=== PATIENT | female | born 1955 | race Caucasian/White ===

== ENCOUNTER 2020-05-11 14:02 | Outpatient (REF) | payer SELFPAY | END 2020-05-11 14:03 | disposition home or self-care (01) | LOC: HO.LAB 14:02 | PROVIDERS: Visit Provider Internal Medicine | DX: Z20.828 Contact with and (suspected) exposure to other viral communicable diseases (principal) | CPT/HCPCS: C9803; U0003 ==

== ENCOUNTER 2021-01-15 10:54 | Outpatient (REF) | payer MEDICARE, MEDICAID, SELFPAY | END 2021-01-15 10:55 | disposition home or self-care (01) | LOC: HO.LAB 10:54 | PROVIDERS: PCP Internal Medicine; Visit Provider Internal Medicine | DX: Z20.822 Contact with and (suspected) exposure to COVID-19 (principal) | CPT/HCPCS: C9803; U0003; U0005 ==

== ENCOUNTER 2021-01-24 09:35 | Emergency (ER) | payer MEDICARE, SELFPAY ==
[2021-01-24 11:25] VITALS: BP 146/96; PULSE 98; RESP 20; TEMP 36.8; O2SAT 98; BMI 21.2
[2021-01-24 12:07] LABS: MANUAL DIFF FLAG NO
[2021-01-24 12:08] LABS: Basophils Absolute Auto 0.1 X10*3/uL (0.0-0.2); Basophils Percent Auto 0.8 % (0-2); Hematocrit 44.1 % (37-47); Hemoglobin 15.1 g/dl (12.0-16.0); Imm Gran Abs Auto 0.05 X10*3/uL (0.00-0.03); Imm Gran Pct Auto 0.5 % (0.0-0.4); Lymphocytes Percent Auto 10.5 % (20-40); Mean Corpuscular HGB Conc 34.2 g/dl (31.0-35.0); Mean Corpuscular Volume 99.3 fL (80-98); Mean Platelet Volume 9.9 fL (9.4-12.3); Monocytes Percent Auto 10.5 % (2-11); Neutrophils Absolute Auto 7.7 X10*3/uL (2.0-8.3); Neutrophils Percent Auto 77.7 % (45-73); Platelet Count 353 X10*3/uL (160-400); Red Blood Count 4.44 X10*6/uL (4.20-5.50); Red Cell Distribution Width 11.7 % (11.0-16.0); White Blood Count 9.9 X10*3/uL (4.8-10.8)
[2021-01-24 12:18] LABS: INTERNATIONAL NORM RATIO 1.1 (0.9-1.1); Prothrombin Time 12.1 SEC (9.9-13.0)
[2021-01-24 12:28] LABS: Anion Gap 18 (12-20); Blood Urea Nitrogen 8 mg/dL (9-16); Calcium 9.6 mg/dL (8.4-10.2); Carbon Dioxide 24 mmol/L (22-29); Chloride 99 mmol/L (96-108); Creatinine Clr Calc Pharmacy 85.2; Estimated Glomerular Filt Rate > 60; Glucose Random 108 mg/dL (60-115); Lipase 55 U/L (8-78); Sodium 137 mmol/L (135-145)
[2021-01-24 12:29] LABS: COVID-19 Test Negative (Negative); IDNOW Serial# 08D9AD1C
[2021-01-24] MEDS: Ondansetron ODT 4 MG TAB.RAPDIS TRANSLINGU (12:30)
[2021-01-24 13:00] VITALS: BP 150/98; PULSE 88; RESP 16; O2SAT 100
--- NOTE | 2021-01-24 13:01 | ED_ITS ---
HPI - Nausea/Vomiting/Diarrhea General Chief complaint: Nausea/Vomiting/Diarrhea Stated complaint: vomiting for weeks Time Seen by Provider: 01/24/21 13:00 Source: patient Mode of arrival: ambulatory Limitations: no limitations History of Present Illness HPI Narrative: 65-year-old female who is not on any daily medications presents for intermittent nausea and vomiting for the last 6 weeks. There is no pattern to this, patient will vomit every 3 days, sometimes go for week and then vomit once. She has not changed her diet, reports a healthy diet. No abdominal pain, no fevers. No diarrhea. No weight loss, no night sweats, has not seen a respiratory services manager. Patient tried to get in with her primary care provider, but the wait was too long so she came here. Patient feels that she is hydrating well. She has not tried any prescription anti nausea medication. No recent antibiotic use, no recent different water sources or drinking from streams, no recent camping. The vomiting is not associated with eating, she does not have early satiety. Her last colonoscopy was at age 50, 15 years ago. MD elicited complaint: nausea and vomiting Onset (ago): week(s) (6) Description of vomiting: food contents Associated nausea: Yes Associated abdominal pain: No Exacerbating factors: none Relieving factors: none Associated symptoms: denies other symptoms Related Data Previous Rx's Medication Instructions Recorded ondansetron HCl 4 mg tablet 4 mg PO Q8H PRN #12 tab 01/24/21 (Zofran) Allergies Allergy/AdvReac Type Severity Reaction Status Date / Time penicillin G [PENICILLIN G] Allergy Mild RASH Verified 01/24/21 11:30 Review of Systems Review of Systems: Constitutional : No Weight loss, No Fever, No Chills, No Night Sweats,No Fatigue, No Malaise ENT/Mouth : No Hearing loss, No Ear Pain, No Nasal Congestion, NoSinus Pain, No Hoarseness, No sore throat, No Rhinorrhea, NoSwallowing Difficulty Eyes: No Eye Pain, No Swelling, No Redness, No Foreign Body, NoDischarge, No Vision Changes Cardiovascular : No Chest Pain, No SOB, No Dyspnea on Exertion, NoOrthopnea, No Edema, No Palpitations Respiratory : No Cough, No Sputum, No Wheezing, No Smoke Exposure, No Dyspnea Gastrointestinal : nausea and vomiting, No Diarrhea, NoConstipation, No abdominal Pain, No Hematochezia, No Melena Genitourinary : no irregular bleeding, No Dysuria, No UrinaryFrequency, No Hematuria, No Urinary Incontinence, No Urgency, No FlankPain, No Urinary Flow Changes, No Hesitancy Musculoskeletal : No joint pain, No Myalgias, No Joint Swelling Skin : No Skin Lesions, No rash Neuro : No Weakness, No Numbness, No Paresthesias, No Loss ofConsciousness, No Dizziness, No Headache Psych :, No Depression, No SI/HI/AH/VH, No Social Issues, Endocrine : No Polyuria, No Polydipsia, No Temperature Intolerance Gastrointestinal: Gastrointestinal: Reports nausea PMFSH Past Medical History Medical History (Updated 01/24/21 @ 13:35 by MARLYN Samaniego) Arthritis Social History Social History Alcohol intake: current Alcohol intake frequency: 0-2 drinks per day Patient Tobacco Use Status: Never used Tobacco Use of substances other than those prescribed or required for medical reasons: No Advance Directives: Yes Advance Directives Information Provided: Yes Advance Directives on File: No Physical Exam Vital Signs: Vital Signs: Last Vital Signs Temp 98.3 F 01/24/21 11:25 Pulse 88 01/24/21 13:00 Resp 16 01/24/21 13:00 BP 150/98 H 01/24/21 13:00 Pulse Ox 100 01/24/21 13:00 Body Mass Index 21.2 Appearance: Alert. Oriented X3. No acute distress. Head: Normal external exam. Normocephalic. Atraumatic. ?No Denny signs noted. No raccoon eyes noted Eyes: PERRLA. EOMI. Conjunctiva and sclera normal. Eyelids normal. ENT: EAC normal. TM's Normal. Pharynx normal. Uvula midline. Moist mucous membranes. ??No trismus noted. ?No drooling noted. ?No muffled voice noted. Neck: Normal inspection. Neck supple. FROM. No adenopathy. Thyroid Normal. No meningeal signs. No neck mass noted. CVS: Normal heart rate and rhythm. Heart sound normal. Pulses normal throughout. ?No murmurs/rales/gallops. Respiratory: No respiratory distress. Painless inspiration. Breath sounds normal. No wheezes/rales/rhonchi noted. Chest nontender. ??No accessory muscle usage noted or decreased air movement noted. Abdomen: Soft and nontender. Bowel sounds normal in all 4 quadrants. No dist ention noted. ?No organomegaly noted. ?No visible injury noted. Back: ?No CVA tenderness. ?Full range of motion noted. ?No rashes/lesion/induration/fluctuance or signs of infection noted. Skin: Skin warm and dry. ?Normal skin color. ?Normal skin turgor. No rashes/lesions/lacerations noted. Extremities: No lower extremity edema. ??Extremities exhibit normal range of motion. ?Extremities nontender. Neuro: Oriented X 3. ?No motor deficit. ?No sensory deficit. ?Reflexes normal. ?Normal steady gait. ?No focal neuro deficits noted. Vascular: + radial pulses/+ 2 distal pedal pulses/+2 dorsalis pedis b/l. ?Normal cap refill. ?No cyanosis noted to upper extremity nails and lower extremity toes nails. Course Course Course Narrative: 65-year-old female who is healthy at baseline presents for 6 weeks of nausea and vomiting that is intermittent who comes to the emergency room because she says ?it would take too long to get an appointment with my primary care provider. On exam, patient has a benign abdomen, no tenderness or guarding, abdomen is soft. Patient has normal chemistries, no leukocytosis, coags normal, COVID negative. EKG shows normal sinus with QTC at 470, which is normal. Will start patient on Zofran, have her follow-up with her primary care provider. MDM - Nausea/Vomiting/Diarrhea Lab Data Result diagrams: 01/24/21 12:02 01/24/21 12:02 Labs: Lab Results 01/24/21 01/24/21 01/24/21 Range/Units 12:02 12:02 12:02 WBC 9.9 (4.8-10.8) X10*3/uL RBC 4.44 (4.20-5.50) X10*6/uL Hgb 15.1 (12.0-16.0) g/dl Hct 44.1 (37-47) % MCV 99.3 H (80-98) fL MCH 34.0 H (27.0-33.0) pg MCHC 34.2 (31.0-35.0) g/dl RDW 11.7 (11.0-16.0) % Plt Count 353 (160-400) X10*3/uL MPV 9.9 (9.4-12.3) fL Immature Gran % (Auto) 0.5 H (0.0-0.4) % Neut % (Auto) 77.7 H (45-73) % Lymph % (Auto) 10.5 L (20-40) % [place]ville % (Auto) 10.5 (2-11) % Eos % (Auto) 0.0 (0-4) % Baso % (Auto) 0.8 (0-2) % Lymph # (Auto) 1.0 L (1.2-4.9) X10*3/uL [place] # (Auto) 1.0 (0.1-1.2) X10*3/uL Eos # (Auto) 0.0 (0.0-0.4) X10*3/uL Baso # (Auto) 0.1 (0.0-0.2) X10*3/uL Abs Immat Gran (auto) 0.05 H (0.00-0.03) X10*3/uL Absolute Neuts (auto) 7.7 (2.0-8.3) X10*3/uL Absolute Nucleated RBC 0.000 (0.0-0.012) X10*3/uL Nucleated RBC % (auto) 0.0 (0.0-0.2) /100WBC PT 12.1 (9.9-13.0) SEC INR 1.1 (0.9-1.1) Sodium 137 (135-145) mmol/L Potassium 4.0 (3.3-5.1) mmol/L Chloride 99 (96-108) mmol/L Carbon Dioxide 24 (22-29) mmol/L Anion Gap 18 (12-20) BUN 8 L (9-16) mg/dL Creatinine 0.66 (0.5-1.4) mg/dL Estim Creat Clear Calc 85.2 Estimated GFR > 60 Random Glucose 108 (60-115) mg/dL Calcium 9.6 (8.4-10.2) mg/dL Lipase 55 (8-78) U/L COVID-19 (MAUREEN) (Negative) COVID-19 Clin Com 01/24/21 Range/Units 12:02 WBC (4.8-10.8) X10*3/uL RBC (4.20-5.50) X10*6/uL Hgb (12.0-16.0) g/dl Hct (37-47) % MCV (80-98) fL MCH (27.0-33.0) pg MCHC (31.0-35.0) g/dl RDW (11.0-16.0) % Plt Count (160-400) X10*3/uL MPV (9.4-12.3) fL Immature Gran % (Auto) (0.0-0.4) % Neut % (Auto) (45-73) % Lymph % (Auto) (20-40) % [place]ville % (Auto) (2-11) % Eos % (Auto) (0-4) % Baso % (Auto) (0-2) % Lymph # (Auto) (1.2-4.9) X10*3/uL [place] # (Auto) (0.1-1.2) X10*3/uL Eos # (Auto) (0.0-0.4) X10*3/uL Baso # (Auto) (0.0-0.2) X10*3/uL Abs Immat Gran (auto) (0.00-0.03) X10*3/uL Absolute Neuts (auto) (2.0-8.3) X10*3/uL Absolute Nucleated RBC (0.0-0.012) X10*3/uL Nucleated RBC % (auto) (0.0-0.2) /100WBC PT (9.9-13.0) SEC INR (0.9-1.1) Sodium (135-145) mmol/L Potassium (3.3-5.1) mmol/L Chloride (96-108) mmol/L Carbon Dioxide (22-29) mmol/L Anion Gap (12-20) BUN (9-16) mg/dL Creatinine (0.5-1.4) mg/dL Estim Creat Clear Calc Estimated GFR Random Glucose (60-115) mg/dL Calcium (8.4-10.2) mg/dL Lipase (8-78) U/L COVID-19 (MAUREEN) Negative (Negative) COVID-19 Clin Com See Note ECG Data Interpretation: Normal sinus at a rate of 80, normal axis. MO interval 146, QRS 86, QTC is not prolonged at 470, no ST segment elevations or depressions, no T- wave changes. Discharge Plan Discharge Clinical Impression: Nausea & vomiting Qualifiers: Vomiting type: unspecified Vomiting Intractability: non-intractable Qualified Code(s): R11.2 - Nausea with vomiting, unspecified Patient Disposition: Home, Self-Care Instructions: Acute Nausea and Vomiting (ED) Additional Instructions: Please call your primary care provider today to arrange an appointment as a follow-up from today's emergency room visit. Please fill the prescription for Zofran and take as prescribed. If you have such nausea and vomiting that you cannot eat, if you have fevers, abdominal pain, or other new or concerning symptoms please return to emergency room. Prescriptions: New ondansetron HCl [Zofran] 4 mg tablet 4 mg PO Q8H PRN (Reason: nausea and vomiting) Qty: 12 RF: 0
--- NOTE | 2021-01-24 13:18 | ECG_ITS ---
Test Reason : NAUSEA Blood Pressure : / mmHG Vent. Rate : 080 BPM Atrial Rate : 080 BPM P-R Int : 146 ms QRS Dur : 086 ms QT Int : 408 ms P-R-T Axes : 047 037 042 degrees QTc Int : 470 ms Normal sinus rhythm Nonspecific ST abnormality Abnormal ECG No previous ECGs available Referred By: Cristel Dejesus Electronically Signed By:MARTIN NOONAN
[2021-01-24 13:55] VITALS: BP 155/103; PULSE 89; RESP 18; TEMP 36.7; O2SAT 100
--- NOTE | 2021-01-24 14:02 | PC.NURSE ---
PT EVALUATED BY PROVIDER UPON ARRIVAL TO BED. REVIEWED LABS COMPLETED IN THE WAITING ROOM. PLAN IS FOR DC HOME. PT AGREEABLE TO THIS PLAN. PT AWAKE, ALERT AND ORIENTED X 3. SKIN WARM AND DRY. RESP UNLABORED. DENIES N/V. NO ACUTE DISTRESS NOTED. AMBULATORY, GAIT STEADY.
== END 2021-01-24 14:00 | disposition home or self-care (01) ==
PROVIDERS: Emergency Provider Internal Medicine; PCP Internal Medicine
DX: R11.2 Nausea with vomiting, unspecified (principal); Z20.822 Contact with and (suspected) exposure to COVID-19
CPT/HCPCS: 36415; 80048; 83690; 85025; 85610; 87635; 93005; 99283; 99284

== ENCOUNTER 2021-10-01 09:47 | Outpatient (REF) | payer MEDICARE, SELFPAY ==
[2021-10-01 10:07] LABS: COVID-19 Test Positive (Negative); IDNOW Serial# 08D9AD1C
== END 2021-10-01 09:48 | disposition home or self-care (01) ==
LOC: HO.LAB 09:47
PROVIDERS: PCP Internal Medicine; Visit Provider Internal Medicine
DX: Z20.822 Contact with and (suspected) exposure to COVID-19 (principal)
CPT/HCPCS: 87635; C9803

== ENCOUNTER 2021-10-16 10:02 | Outpatient (REF) | payer MEDICARE, SELFPAY ==
[2021-10-16 11:12] LABS: COVID-19 Test Negative (Negative); IDNOW Serial# 08D9AD1C
== END 2021-10-16 10:03 | disposition home or self-care (01) ==
LOC: HO.LAB 10:02
PROVIDERS: Visit Provider Internal Medicine
DX: Z20.822 Contact with and (suspected) exposure to COVID-19 (principal)
CPT/HCPCS: 87635; C9803

== ENCOUNTER 2023-12-07 07:26 | Emergency (ER) | payer OTHER, SELFPAY ==
[2023-12-07 07:31] VITALS: BP 158/96; PULSE 119; RESP 18; TEMP 37; O2SAT 98; BMI 20.7
--- NOTE | 2023-12-07 07:38 | ED.NAVMDI ---
HPI - Nausea/Vomiting/Diarrhea General Chief complaint: Nausea/Vomiting/Diarrhea Stated complaint: NAUSEA/VOMITING X24 HRS PER EMS Time Seen by Provider: 12/07/23 07:33 Source: patient and EMS Mode of arrival: EMS Limitations: no limitations History of Present Illness ED Provider: Dr. Horan HPI Narrative: Patient has not had an alcoholic drink in 3days because she was going for a hip replacement today. Patient unable to keep anything down. MD elicited complaint: nausea and vomiting Onset (ago): hour(s) Description of vomiting: watery Associated nausea: Yes Related Data Previous Rx's ?Medication ?Instructions ?Recorded ondansetron HCl 4 mg tablet 4 mg PO Q8H PRN nausea and 01/24/21 (Zofran) vomiting #12 tabs ondansetron 4 mg disintegrating 4 mg PO Q8H 4 days #12 tabs 12/07/23 tablet Allergies Allergy/AdvReac Type Severity Reaction Status Date / Time penicillin G [PENICILLIN G] Allergy Mild RASH Verified 12/07/23 07:40 Review of Systems Review of Systems: Yes all other systems are reviewed and are negative Gastrointestinal: Gastrointestinal: Reports nausea Neurologic: Denies Sensory deficit (Neuro) [facility] Past Medical History Medical History Arthritis Social History Social History Unable to assess alcohol history related to: Unknown Alcohol intake: current Alcohol intake frequency: 0-2 drinks per day Alcohol type: wine and hard liquor Patient Tobacco Use Status: Never used Tobacco Advance Directives: No Advance Directives Information Provided: Yes Do you have a plan to hurt others: No Plan Physical Exam Vital Signs: Vital Signs: Last Vital Signs Temp 98.1 F 12/07/23 12:44 Pulse 95 12/07/23 12:44 Resp 18 12/07/23 12:44 BP 125/67 12/07/23 12:44 Pulse Ox 98 12/07/23 12:44 O2 Del Method Room Air 12/07/23 12:44 BMI result Body Mass Index 20.7 Const: Other: female shakey, diaphoretic looking miserable Nutritional Appearance: average body habitus Orientation/consciousness: oriented to person and patient oriented x3 Limitations: no limitations HEENT: Head: Yes normal to inspection Ears: external ears normal General nose exam: Normal external nose present Mouth: Normal oral and palatal mucosa present and oropharynx normal Throat: Yes posterior oropharynx normal Eyes: General: appearance normal, both eyes and all related structures Neck: Other: supple Neck: Yes normal visual inspection Chest: Chest palpation & inspection: normal inspection of the chest Resp: Auscultation: clear to auscultation bilaterally Cardio: Jugular venous distension: no JVD Rate: regular rate Rhythm: regular rhythm Heart sounds: S1 normal heart sound present and S2 normal heart sound present GI: Inspection: Yes normal to inspection Palpation (GI): Soft to palpation, nontender and No hepatosplenomegaly present Auscultation: normal bowel sounds : General: Yes no CVA tenderness Back/Spine/Pelvis: Back: no CVA tenderness Skin: General skin exam: no rashes or lesions noted Neuro: Other: shakey tremulous General: oriented to person and patient oriented x3 Cranial nerves: Yes CN's II-XII intact bilaterally Motor exam (neuro): 5/5 motor strength present throughout Sensory Exam: No Sensory deficit (Neuro) Extrem: General: Yes normal to inspection Psych: Appearance: grossly normal Course Reevaluation(s) Reevaluation #1: clinically the patient looks like she is in withdrawal, she improved after IV phenobarbital and zofran, will dc home Time: 09:42 Medications Administered Discontinued Medications Generic Name Dose Route Start Last Admin Trade Name Freq PRN Reason Stop Dose Admin Sodium Chloride 1,000 mls @ 999 mls/hr 12/07/23 07:45 12/07/23 11:39 Ns IVCONT 12/07/23 09:45 999 mls/hr .Q1H1M TERRY Administration Magnesium Sulfate 2 gm in 50 mls @ 25 mls/hr 12/07/23 08:18 12/07/23 09:16 Magnesium Sulfate/H2o IV 12/07/23 10:17 Infused ONCE ONE Infusion Potassium Chloride 10 meq in 100 mls @ 100 mls/hr 12/07/23 10:30 12/07/23 11:40 Potassium Chloride/H20 IV 12/07/23 12:29 100 mls/hr Q1H TERRY Administration Ondansetron HCl 4 mg 12/07/23 07:42 12/07/23 08:02 Ondansetron Hcl 4 Mg/2 Ml Vial IVPUSH 12/07/23 07:43 4 mg ONCE ONE Administration Phenobarbital Sodium 65 mg 12/07/23 07:42 12/07/23 08:02 Phenobarbital Sodium 65 Mg/Ml Vial IVPUSH 12/07/23 07:43 65 mg ONCE ONE Administration Medical Decision Making Differential Diagnosis Differential Diagnoses: The differential diagnosis associated with the presentation includes (alcohol withdrawal, viral gastritis, gastritis, alcoholism, hypomagnesemia) Admission/Observation Consideration of admission/observation: Escalation of care including admission/observation considered (upon arrival patient considered for admission) Consult Healthcare Provider Management of the patient was discussed with: Chemistry Quality Control Technician (susan DUVALL) Lab Data 12/07/23 07:50 12/07/23 07:50 Labs: Lab Results 12/07/23 Range/Units 07:50 WBC 7.1 (4.8-10.8) X10*3/uL RBC 3.76 L (4.20-5.50) X10*6/uL Hgb 13.0 (12.0-16.0) g/dl Hct 37.0 (37.0-47.0) % MCV 98.4 H (80.0-98.0) fL MCH 34.6 H (27.0-33.0) pg MCHC 35.1 H (31.0-35.0) g/dl RDW 11.9 (11.0-16.0) % Plt Count 100 L (160-400) X10*3/uL MPV 11.0 (9.4-12.3) fL Immature Gran % (Auto) 0.3 (0.0-0.4) % Neut % (Auto) 77.5 H (45-73) % Lymph % (Auto) 10.8 L (20-40) % Rains % (Auto) 11.1 H (2-11) % Eos % (Auto) 0.0 (0-4) % Baso % (Auto) 0.3 (0-2) % Lymph # (Auto) 0.8 L (1.2-4.9) X10*3/uL Rains # (Auto) 0.8 (0.1-1.2) X10*3/uL Eos # (Auto) 0.0 (0.0-0.4) X10*3/uL Baso # (Auto) 0.0 (0.0-0.2) X10*3/uL Abs Immat Gran (auto) 0.02 (0.00-0.03) X10*3/uL Absolute Neuts (auto) 5.5 (2.0-8.3) x10*3/uL Absolute Nucleated RBC 0.000 (0.0-0.012) X10*3/uL Nucleated RBC % (auto) 0.0 (0.0-0.2) /100WBC Sodium 140 (135-145) mmol/L Potassium 3.1 L (3.3-5.1) mmol/L Chloride 102 (96-108) mmol/L Carbon Dioxide 22 (22-29) mmol/L Anion Gap 19 (12-20) BUN 12 (9-16) mg/dL Creatinine 0.62 (0.5-1.4) mg/dL Estim Creat Clear Calc 77.2 Estimated GFR > 60 Random Glucose 129 H (60-115) mg/dL Calcium 9.4 (8.4-10.2) mg/dL Magnesium 1.3 L* (1.6-2.6) mg/dL Total Bilirubin 3.6 H (0.0-1.0) mg/dL AST 95 H (5-31) U/L ALT 35 H (0-31) U/L Alkaline Phosphatase 123 H (39-117) U/L Total Protein 7.6 (6.5-8.0) g/dL Albumin 3.8 (3.5-5.0) g/dL Ethyl Alcohol < 10 mg/dL Independent Historian Clinical information obtained from an independent historian. History obtained from or confirmed by: EMS External Record Review External record reviewed: Outpatient record Chronic Conditions Patient?s care impacted by: Other (alcoholism) Discharge Plan Discharge Clinical Impression: Vomiting, Alcoholism, Alcohol withdrawal Patient Disposition: Home, Self-Care Instructions: Acute Nausea and Vomiting (ED), Alcohol Withdrawal (DC) Prescriptions: New ondansetron 4 mg tablet,disintegrating 4 mg PO Q8H 4 Days Qty: 12 0RF No Action ondansetron HCl [Zofran] 4 mg tablet 4 mg PO Q8H PRN (Reason: nausea and vomiting) Qty: 12 0RF Referrals: Raina Red MD [Primary Care Provider] - 5 days Interventions: ED Discharge Assessment Last Done: 12/07/23 12:44 Print Language: [place]ib[place]
[2023-12-07] MEDS: 0.9 % Sodium Chloride 1,000 ML 999 ML IVCONT ×2 (07:57→11:39)
[2023-12-07 07:58] LABS: MANUAL DIFF FLAG NO
[2023-12-07 08:02] LABS: Basophils Percent Auto 0.3 % (0-2); Imm Gran Abs Auto 0.02 X10*3/uL (0.00-0.03); Imm Gran Pct Auto 0.3 % (0.0-0.4); Lymphocytes Absolute Auto 0.8 X10*3/uL (1.2-4.9); Lymphocytes Percent Auto 10.8 % (20-40); Mean Corpuscular HGB Conc 35.1 g/dl (31.0-35.0); Mean Corpuscular Hemoglobin 34.6 pg (27.0-33.0); Mean Corpuscular Volume 98.4 fL (80.0-98.0); Monocytes Absolute Auto 0.8 X10*3/uL (0.1-1.2); Monocytes Percent Auto 11.1 % (2-11); Neutrophils Absolute Auto 5.5 x10*3/uL (2.0-8.3); Neutrophils Percent Auto 77.5 % (45-73); Platelet Count 100 X10*3/uL (160-400); Red Blood Count 3.76 X10*6/uL (4.20-5.50); Red Cell Distribution Width 11.9 % (11.0-16.0); White Blood Count 7.1 X10*3/uL (4.8-10.8)
[2023-12-07] MEDS: ondansetron HCL 4 MG/2 ML VIAL IVPUSH (08:02)
[2023-12-07] MEDS: PHENobarbitaL sodium 65 MG/ML VIAL IVPUSH (08:02)
[2023-12-07 08:19] LABS: Alanine Aminotransferase 35 U/L (0-31); Albumin Level 3.8 g/dL (3.5-5.0); Alkaline Phosphatase 123 U/L (39-117); Anion Gap 19 (12-20); Aspartate Amino Transferase 95 U/L (5-31); Bilirubin Total 3.6 mg/dL (0.0-1.0); Blood Urea Nitrogen 12 mg/dL (9-16); Calcium 9.4 mg/dL (8.4-10.2); Carbon Dioxide 22 mmol/L (22-29); Chloride 102 mmol/L (96-108); Creatinine Clr Calc Pharmacy 77.2; Estimated Glomerular Filt Rate > 60; Ethanol < 10 mg/dL; Glucose Random 129 mg/dL (60-115); Magnesium 1.3 mg/dL (1.6-2.6); Potassium 3.1 mmol/L (3.3-5.1); Sodium 140 mmol/L (135-145); Total Protein 7.6 g/dL (6.5-8.0)
[2023-12-07] MEDS: Magnesium Sulfate/H2O 2 GM/50 ML PIGGYBACK IV (08:31)
[2023-12-07 08:39] VITALS: PULSE 86; RESP 18; TEMP 37; O2SAT 98
[2023-12-07 10:22] VITALS: BP 136/78; PULSE 92; RESP 18; TEMP 36.8; O2SAT 100
[2023-12-07] MEDS: Potassium Chloride/H20 10 MEQ/100 ML PIGGYBACK 100 MEQ IV ×2 (10:26→11:40)
[2023-12-07 12:19] VITALS: BP 125/67; PULSE 95; RESP 18; TEMP 36.7; O2SAT 98
[2023-12-07 12:44] VITALS: BP 125/67; PULSE 95; RESP 18; TEMP 36.7; O2SAT 98
== END 2023-12-07 13:07 | disposition home or self-care (01) ==
PROVIDERS: Emergency Provider Emergency Medicine; PCP Internal Medicine
DX: F10.239 Alcohol dependence with withdrawal, unspecified (principal); Y90.0 Blood alcohol level of less than 20 mg/100 ml; R11.2 Nausea with vomiting, unspecified; M25.50 Pain in unspecified joint; Z51.81 Encounter for therapeutic drug level monitoring; Z79.899 Other long term (current) drug therapy
CPT/HCPCS: 36415; 80053; 80307; 83735; 85025; 96361; 96365; 96366; 96375; 99284; J2405; J2560; J3475; J3480